=== PATIENT | male | born 1995 | race Caucasian/White ===

== ENCOUNTER 2021-09-04 05:35 | Day surgery (SDC) | payer OTHER ==
[~2021-09-04] VITALS: Ht 198.1 cm; Wt 88.6 kg
[~2021-09-04 05:35] MED LIST: CEPHALEXIN500 MG PO; LORTAB ELIXIR473 ML PO; NORCO 5-325 TA1 EACH PO; PERCOCET 7.5-31 EACH PO
[2021-09-04] MEDS ORDERED: BUPROPION XL150 MG PO (05:54)
--- NOTE | 2021-09-04 06:09 | NUR ---
PT ARRIVED FOR PROCEEDURE. INTAKE ASSESSMENT DONE. IV STARTED BY AVIS SULLIVAN WITH [address] PT REPORTS ALL HIS QUESTIONS HAVE BEEN ANSWERED. NO ADDITIONAL NEEDS AT THIS TIME. BED RAILS UP. CALL LIGHT WITHIN REACH.
--- NOTE | 2021-09-04 07:26 | NUR ---
THIS RN TO ROOM TO CHECK ON PT. PT REPORTS CLEARANCE REPRESENTATIVE COMPLETED "NERVE BLOCK" PT REPORTS LEFT KNEE IS STARTING TO GO NUMB. OXYGEN SATURATION 97% ON ROOM AIR. PT DENIES PAIN AND NAUSEA. NO ADDITIONAL REQUESTS OR COMPLAINTS. CALL LIGHT WITHIN REACH. BED RAILS UP. MOTHER AT BEDSIDE.
--- NOTE | 2021-09-04 08:15 | NUR ---
PT ALERT, ORIENTED AND SUPPORTED BY HIS MOTHER. PT SEEMS RELAXED, ALL HIS QUESTIONS ANSWERED. MOTHER WILL REMAIN FOR DC, PT REQUESTED PRAYER. WILL FOLLOW NEEDED
[2021-09-04] MEDS ORDERED: HYDROCODON-ACE1 EA11 PO (08:51)
--- NOTE | 2021-09-04 08:57 | NUR ---
09/04/21 0857 Laura Webb 0845 PATIENT ARRIVES TO PACU UNRESPONSIVE TO PAIN. RESP EVEN AND UNLABORED, MASK AT 6 LITERS.
--- NOTE | 2021-09-04 09:15 | NUR ---
PT ARRIVED FROM PACU. REPORT RECEIVED FROM AVIS MITCHELL. PT ALERT AND OREINTED. TOLERATING ROOM AIR. PT REPORTS 08/09 AND STATES "I'D RATHER BE IN PAIN THAN TAKE A PAIN PILL." PT ENCORUAGED TO KEEP PAIN IN CONTROL. PT AGREES TO EAT A SNACK AND CONSIDER A PAIN PILL. CMS INTACT TO BILATERAL EXTREMITIES. BRACE IN PLACE OVER LEFT KNEE. DRESSING C/D/I. STRONG PLANTAR AND DORSI FELXTION NOTED. PT REPORTS KNEES AND MID LEG IS NUMB/TINGLING. ABLE TO FEEL TOES. VITAL SIGNS STABLE. PT DENIES ADDITIONAL REQUESTS OR COMPLAINTS. CALL LIGHT WITHIN REACH. MOTHER AT BEDSIDE.
--- NOTE | 2021-09-04 09:21 | NUR ---
DR FERREIRA PER Sha OCHOA RN BRACE 22/11 SPONGE BATH ONLY UNTIL FOLLOW UP APPT.
--- NOTE | 2021-09-04 09:54 | NUR ---
DR. FERREIRA CONSULTED AND STATES PT IS NOT TO REMOVE DRESSING IN THREE DAYS BUT RATHER TO LEAVE DRESSING AND BRACE IN PLACE UPON DISCHRAGE. SPONGE BATH ONLY. UNTIL OTHERWISE DIRECTED BY DR FERREIRA. DISCHARGE PLAN CORRECTED.
--- NOTE | 2021-09-04 10:12 | NUR ---
VITALS AND ASSESSMENT DUE. PT RESTING IN BED. TOLERATING PO JELLOW AND GRANOLA BARS WELL. DENIES NAUSEA. PT REPORTS 2/10 PAIN AND STATES HE DOES NOT NEED PAIN MEDICATION AT THIS TIME. PT DECLINES STOOL SOFTENER. DRESSING REMAINS C/D/I, NO DRAINAGE NOTED. BRACE IN PLACE OVER KNEE. STRONG PLANTAR AND DORSI FLEXTION CONTINUES. CMS INTACT BUT FOR NUMBNESS/TINGLING TO UPPER LEFT LEG AND KNEES. PT REPORTS NORMAL SENSATION IN TOES. PT DENIES NEED TO VOID AT THIS TIME. CRUTCHES AT BEDSIDE. EDUCATION DONE WITH PT AND MOTHER REGARDING LEAVING BRACE AND DRESSING IN PLACE AT ALL TIMES. PT AND MOTHER VERBALIZE UNDERSTANDING. NO ADDITIONAL NEEDS AT THIS TIME. CALL LIGHT WITHIN REACH. BED RAILS UP.
--- NOTE | 2021-09-04 10:26 | NUR ---
PT CALL LIGHT ON. PT REPORTS HE IS READY TO GET UP TO VOID. STAND BY ASSSIT WITH CRUTCH, LEFT TOE TOUCH ONLY UP TO RESTROOM. PT VOIDS 300ML CLEAR YELLOW URINE WITHOUT ISSUE. STAND BY ASSIST BACK TO BED. PT REPORTS HE FEELS READY FOR DISCHRAGE. PT ABLE TO DRESSE SELF, SKIILLS TAUGHT TO PT FOR PLACING UNDERWARD AND PANTS WITHOUT BENDING OPERATIVE KNEE OR PLACING WEIGHT ON OPERATIVE EXTERMITY. PT REPORTS 4/10 PAIN IN LEFT KNEE. PT CONTINUES TO DECLINE PAIN MEDICATION. DISCHARGE INSTRUCTIONS REVIEWED WITH PT AND PTS MOTHER. PT AND MOTHER VERBALIZE UNDERSTANDING OF INSTRUCTIONS, MEDICATIONS, FOLLOW UP AND ACTIVITY RESTRICTIONS AND STATE THEIR QUESTIONS HAVE BEEN ANSWERED. PT WHEELED FROM DAY SURGERY WITH ALL BELONGINGS. NO ADDITIONAL REQUESTS OR CONCERNS.
--- NOTE | 2021-09-07 09:05 | OR ---
[facility] [address] [place], [place] [address] Signed DATE OF OPERATION: 09/04/2021 SURGEON: Heber Sung MD PREOPERATIVE DIAGNOSIS: Partial tear of patellar tendon, left. POSTOPERATIVE DIAGNOSIS: Partial tear of patellar tendon, left. PROCEDURE PERFORMED: Left patellar tendon repair. ENVIRONMENTAL MAINTENANCE WORKER: None. ANESTHESIA: General. BLOOD LOSS: 50 mL. BRIEF HISTORY: Kay is a 26-year-old gentleman with chronic history of patellar tendon pain. He had undergone rehab and bracing without substantial relief. MRI showed a partial rupture of the mid to central third of his patellar tendon. The risks and benefits of the operative treatment were discussed with him. He elected to proceed once consent was obtained, he was taken to the operating room after adequate anesthesia. He was placed on operating table. All downside pressure points well padded. The left leg was prepped and draped in a standard sterile fashion. A 3-inch incision was made overlying the patellar tendon, carried through skin and subcutaneous tissue. The paratenon was then incised longitudinally, carefully elevated medially and laterally. The defect in the patellar tendon was easily palpable. There were some superficial fibers still intact, these were incised longitudinally. There was some fluid in the tendon, but no significant necrotic tissue. There was simply appeared to be a hole that was about 6 cm in length, 3 cm wide. This was carefully debrided sharply using a rongeur and curette. Good bleeding surface was obtained, all the way through. The wound was then copiously irrigated with normal saline. Once that was completed, the attachment of the patellar tendon to the patella was carefully examined. There was no significant detachment from the patella itself. We then elected to do a [id number] repair using #1 Vicryl. Electronically Signed By: HEBER SUNG MD 09/07/21 0905 PATIENT NAME: KAY CATES OPERATIVE REPORT DATE OF : [birth year] REPORT #: [id number] PHYSICIAN: HEBER SUNG MD PCP: JASWINDER HERNANDEZ MD REPORT IS CONFIDENTIAL AND NOT TO BE RELEASED WITHOUT AUTHORIZATION [facility] [address] [facility] [place], [place] [address] Signed Interrupted sutures were used to repair the tendon into a tight repair. The paratenon was then repaired using 2-0 Monocryl. The subcutaneous tissue with 2-0 StrataFix and skin with 3-0 StrataFix. The wound was then sealed with Dermabond and dressed with an Acticoat 7 dressing, ABD, and Kiran wrap. He tolerated the procedure well. All sponge, needle, and instrument counts were correct. Heber Sung MD BA/MODL /[id number] Copies: ~ Electronically Signed By: HEBER SUNG MD 09/07/21 0905 PATIENT NAME: KAY CATES OPERATIVE REPORT DATE OF : [birth year] REPORT #: [id number] PHYSICIAN: HEBER SUNG MD PCP: JASWINDER HERNANDEZ MD REPORT IS CONFIDENTIAL AND NOT TO BE RELEASED WITHOUT AUTHORIZATION
== END 2021-09-04 10:40 | disposition home or self-care (01) ==
LOC: DS 05:35
PROVIDERS: ATTEND Specialist
PROC: 0LQR0ZZ Repair Left Knee Tendon, Open Approach (ICD-10-PCS; principal; 2021-09-04 08:00)
DX: S76.112A Strain of left quadriceps muscle, fascia and tendon, initial encounter (principal); S76.111A Strain of right quadriceps muscle, fascia and tendon, initial encounter; G89.18 Other acute postprocedural pain
CPT/HCPCS: 64447; 76942; J0690; J1100; J2001; J2250; J2405; J2704; J2795; J7121

== ENCOUNTER 2024-08-06 02:44 | Emergency (ER) | payer BC, OTHER ==
[~2024-08-06] VITALS: Ht 198.1 cm; Wt 99.8 kg
[~2024-08-06 02:44] MED LIST changes: +BUPROPION XL150 MG PO; +HYDROCODON-ACE1 EA11 PO
[2024-08-06] MEDS ORDERED: VENLAFAXINE HCL75 M1 PO (03:02)
[2024-08-06] MEDS ORDERED: IBUPROFEN 800 MG TAB PO ONE (03:15)
[2024-08-06] MEDS ORDERED: ALBUTEROL/IPRATROPIUM 3 ML NEB INH ONE (03:15)
[2024-08-06 03:45] LABS: CORONAVIRUS COVID-19 AG NEGATIVE (NEGATIVE); INFLUENZA A AG POSITIVE (NEGATIVE); INFLUENZA B AG NEGATIVE (NEGATIVE)
[2024-08-06] MEDS ORDERED: ALBUTEROL SULFATE 8 GM HOME.PACK INH ONE (04:00)
[2024-08-06 04:11] VITALS: BP 142/88
[2024-08-06] MEDS ORDERED: INHALER, ASSIST DEVICES 1 EACH SPACER MISC ONE (04:15)
== END 2024-08-06 04:10 | disposition home or self-care (01) ==
LOC: ED 02:44
PROVIDERS: Internal Medicine
DX: J10.1 Influenza due to other identified influenza virus with other respiratory manifestations (principal); Z79.899 Other long term (current) drug therapy
CPT/HCPCS: 36415; 71045; 94640; 94664; 99285-25